=== PATIENT | male | born 2000 | race Hispanic/Latino ===

== ENCOUNTER → 2024-07-16 | Outpatient (CLI) | payer OTHER, SELFPAY ==
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
== END | disposition home or self-care (01) ==
PROVIDERS: Referring Provider Physician Assistant; Visit Provider Physician Assistant
DX: M79.604 Pain in right leg (principal)
CPT/HCPCS: 73590

== ENCOUNTER → 2024-08-12 | Outpatient (CLI) | payer OTHER, SELFPAY ==
--- NOTE | 2024-08-12 14:00 | VDLE_ITS ---
Reason For Study Reason For Study: Swelling RIGHT LEFT CFV is compressible, spontaneous, phasic, competent CFV is compressible, spontaneous, phasic, competent, and demonstrates normal augmentation. and demonstrates normal augmentation. FV is compressible, spontaneous, phasic, competent and demonstrates normal augmentation. POP V is compressible, spontaneous, phasic, competent and demonstrates normal augmentation. T/P Trunk is compressible. PTV is compressible. RT PerV is compressible. SFJ is INCOMPETENT and measures 0.60 cm. GSV proximal thigh measures 0.18x0.20 cm. GSV at knee measures 0.15x0.21 cm. GSV below knee is INCOMPETENT for greater than 0.5 seconds. SSV mid calf is competent and measures 0.35x0.39 cm. Procedure This is a venous duplex using B-mode, color flow and spectral Doppler. Exam performed in department. Patient was scanned in reverse Trendelenburg position during reflux assessment. VL/Venous Duplex US, Unilateral Interpretation Summary Deep veins of the right lower extremity are patent and compressible segmentally . There is no evidence of right lower extremity deep vein thrombosis. The right great saphenous vein appears patent a nd compressible segmentally. Positive for reflux in the right saphenofemoral junction, great saphenous vein below the knee. Ordering Physician: Malissa Jeff Performed By: Raymond Syed RVT and Student
== END | disposition home or self-care (01) ==
LOC: CVS 13:58
PROVIDERS: Visit Provider Physician Assistant
DX: M79.604 Pain in right leg (principal)
CPT/HCPCS: 93971

== ENCOUNTER → 2024-08-20 | Outpatient (CLI) | payer OTHER, SELFPAY ==
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
== END | disposition home or self-care (01) ==
LOC: MRI 12:45
PROVIDERS: Referring Provider Physician Assistant; Visit Provider Physician Assistant
DX: M79.604 Pain in right leg (principal)
CPT/HCPCS: 73720; A9575

== ENCOUNTER 2024-09-18 14:00 | Outpatient (RCR) | payer OTHER, SELFPAY ==
[2024-08-28 15:32] VITALS: BP 123/66; PULSE 78; RESP 16; TEMP 36.3; BMI 29.1
--- NOTE | 2024-08-28 17:26 | PN.PCM_ITS ---
History of Present Illness Date of Service: 08/28/24 Objective Data Objective Data Vital Signs: Vital Signs Temp Pulse Resp BP O2 Del Method 97.4 F L 78 16 123/66 H Room Air 08/28/24 15:32 08/28/24 15:32 08/28/24 15:32 08/28/24 15:32 08/28/24 15:32 Oxygen Delivery Method Room Air Weight: 175 lb Body Mass Index (BMI) 29.1 Debridement Note Debridement Note Post-Debridement Measurements and Additional Note: Post-Debridement Measurements/Treatment - Nurse 1 - General Ulcer Assessment Start: 08/28/24 15:27 Freq: Status: Active Protocol: PAO.[email or web address] Activity Type Activity Date Activity User E-sign Co-sign Detail Recorded Client Recorded Date Recorded By Document 08/28/24 15:32 DS [id number] 08/28/24 15:39 DS 08/28/24 15:32 WC - Today's Visit Information Type of service Initial Visit Arrival Mode Ambulatory Patient Identification Verified (Name & Yes ) Patient Requires Transmission-Based No Precautions Safety Precautions Fall Prevention Height and Weight Height 5 ft 5 in Weight 175 lb Weight in Pounds 175.0 lbs Weight Measurement Method Estimated by Patient Body Mass Index (BMI) 29.1 BMI Classification Overweight Vital Signs Temperature (97.8 F-99.1 F) 97.4 F L Temperature Source Temporal Pulse Rate (60-100) 78 Pulse Location Monitor Respiratory Rate (12-18) 16 Respiratory rate source Observation Oxygen Delivery Method Room Air Blood Pressure (90/60-120/80) 123/66 H Blood Pressure Mean (mm Hg) 85 Source Monitor Position Semi-Fowlers Blood Pressure Location Right Arm History Since Last Visit- (Skip if this is Patient's initial visit) Left Footwear Regular Shoe Right Footwear Regular Shoe Pain Scale: 0-10 Numeric Is Patient Pain Free? No RLE -Description Sharp -Intensity 6 -Duration (hours) Chronic -Alleviating Factors/Interventions Will continue to monitor, Emotional Support Lower Extremity Assessment/ Foot Assessment/ Toe Nail Assessment Right -Polpliteal Pulses Palpable Yes -Popliteal Doppler Monophasic -Posterior Tibial Palpable Yes -Posterior Tibial Doppler Monophasic -Dorsalis Pedis Palpable Yes -Dorsalis Pedis Doppler Monophasic -Extremity Color Normal -Hair Growth on Legs Yes -Hair Growth on Toes Yes -Temperature of Extremity Warm -Capillary Refill Less than 3 Seconds -Thick No -Discolored No -Deformed No -Improper Length & Hygeine No Communication Assessment Primary Language Welsh Preferred language Fusion Analyst Required Yes Name/Type of Jackerman friend Able to Read Yes Able to Write Yes Right Hearing Abillity Normal Left Hearing Abillity Normal Visual Assistive Devices Glasses Teaching Assessment Preferences Verbal,Written, Demonstration Barriers to Learning Non [place] Speaking Readiness To Learn Good Willingness to Engage in Self Management Med Activies Readiness to Engage in Self Management Med Activities Anxiety Level Anxious Cooperation Cooperative Perception Coherent Interest in Health Problem Asks Questions Education Importance Acknowledges Need Does Patient Smoke tobacco or other No substances Is Patient Diabetic No Functional Assessment Recent Decline in Ability to Perform Denies Any Declines Culture/Confucianism/Finance And Administration Manager Cultural/Confucianism Needs that may affect No Treatment Plan Teaching: Wound Center *Welcome to the Wound Center -Person Taught Patient,Family -Teaching Method Discussion -Response to teaching Verbalize Understanding PAO - Nurse 1 - General Ulcer Measurement Start: 08/28/24 15:27 Freq: Status: Active Protocol: Activity Type Activity Date Activity User E-sign Co-sign Detail Recorded Client Recorded Date Recorded By Document 08/28/24 15:41 DS [id number] 08/28/24 15:43 DS 08/28/24 15:41 Wound Center Nurse 1 #1 RLE Post cluster -Current Size (cm) - Length 12.7 -Current Size (cm) - Width 11.5 -Current Size (cm) - Depth 0.3 -Total Square Cm 146.05 -Date of Last Picture (Recall this 08/28/24 field) -Photo Taken Yes -Tunneling No -Undermining/Tunneling No -Circular Undermining No -Wound Margin Distinct, Outline Attached -Necrosis Amt Medium (34-66%) -Necrotic Tissue Type Eschar -Texture (Vandana-wound Skin Appearance) Assessed -Moisture (Vandana-wound Skin Appearance) Assessed -Color (Vandana-wound Skin Appearance) Assessed -Temperature (Vandana-wound Skin No Abnormality Appearance) (Pt Warm) -Tenderness on Palpation (Vandana-wound No Skin Appearance) -Ulcer Cleansing Soap and Water -Foul Odor after Cleansing No -Anesthetic Used 5% Lidocaine Gel Right Calf (cm) 34.6 Right Ankle (cm) 24.0 Left Calf (cm) 34.1 Left Ankle (cm) 21.2 PAO - Nurse 2 - General Ulcer CM Notes Start: 08/28/24 15:27 Freq: Status: Active Protocol: Activity Type Activity Date Activity User E-sign Co-sign Detail Recorded Client Recorded Date Recorded By Document 08/28/24 16:03 [id number] 08/28/24 16:18 08/28/24 16:03 Wound Center Nurse 2 #1 RLE Post cluster -Time 16:03 -Correct Patient Yes -Correct Side, Site, Position Yes -Correct Procedure Yes -Procedure Performed Yes -Type of Procedure Debridement -Clinical Debridement Epidermis / Dermis -Tissue Removed Epidermis, Dermis -Post Debridement (cm) - Length 15.0 -Post Debridement (cm) - Width 11.0 -Post Debridement (cm) - Depth 0.1 -Total Square (Post) (cm) 165.00 -Area of Debridement (cm) - Length 15.0 -Area of Debridement (cm) - Width 11.0 -Total Square (Area) (cm) 165.00 -Tunneling No -Undermining/Tunneling No -Circular Undermining No -Wound/Ulcer Outcome Not Healed -Ulcer Cleansing Not Cleansed -Foul Odor after Cleansing No -Bioengineered Tissue No -Bleeding Controlled with NA -Treatment Response Procedure Tolerated Well -Debridement - Open, 1st 20sq cm Yes -Debridement, Open, ea addt'l 20sq cm 8 or part thereof Pain Scale: 0-10 Numeric Is Patient Pain Free? Yes - Nurse 3 - General Ulcer D/C NN Start: 08/28/24 15:27 Freq: Status: Active Protocol: Activity Type Activity Date Activity User E-sign Co-sign Detail Recorded Client Recorded Date Recorded By Document 08/28/24 16:26 [id number] 08/28/24 16:33 DL 08/28/24 16:26 Wound Care Center Nurse 3 #1 RLE Post cluster -Ulcer Cleansing Rinsed/ Irrigated with Saline -Foul Odor after Cleansing No -Primary Dressing Applied Aquacel AG 4x4 -Other Covering Unna -Aquacel AG 4x4 1 RLE -Multi-Layered Wrap Application Unna Boot - Right -Unna- Right (Qty applied) 1 Treatment Response Procedure Tolerated Well Pain Scale: 0-10 Numeric Is Patient Pain Free? Yes - Visit Discharge Discharge Condition Stable Ambulatory Status Ambulatory Transportation Private Auto
--- NOTE | 2024-08-29 10:08 | WC ---
PHOTO 08/28/24 Vasiliy WIGGINS
--- NOTE | 2024-08-29 10:10 | WC ---
PHOTO 08/28/24 Vasiliy WIGGINS
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
[2024-09-04 13:40] VITALS: BP 132/78; PULSE 104; RESP 18; TEMP 36.6; BMI 29.1
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
[2024-09-11 13:42] VITALS: BP 102/64; PULSE 75; RESP 16; TEMP 36.2; BMI 29.1
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
[2024-09-18 13:57] VITALS: BP 123/78; PULSE 84; RESP 18; TEMP 36.1; BMI 29.1
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
--- NOTE | 2024-09-19 09:37 | WC ---
PHOTO 09/18/24 RIGHT LATERAL LE
== END 2024-09-22 23:59 | disposition home or self-care (01) ==
LOC: WC 14:00
PROVIDERS: Referring Provider Physician Assistant; Visit Provider Physician Assistant
DX: L97.919 Non-pressure chronic ulcer of unspecified part of right lower leg with unspecified severity (principal); Z87.891 Personal history of nicotine dependence
CPT/HCPCS: 29580; 87070; 87075; 87205; 97597; 97598; 99213; G0463

== ENCOUNTER 2024-10-16 14:00 | Outpatient (RCR) | payer OTHER, SELFPAY ==
[2024-09-23 00:58] VITALS: BP 123/78; PULSE 84; RESP 18; TEMP 36.1; BMI 29.1
[2024-09-25 14:12] VITALS: BP 123/67; PULSE 84; RESP 18; BMI 29.1
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
--- NOTE | 2024-09-26 10:56 | WC ---
PHOTO 09/25/24 RLE POST CLUSTER
--- NOTE | 2024-09-26 10:57 | WC ---
PHOTO 09/25/24 RLE POST CLUSTER
[2024-10-02 13:17] VITALS: BP 113/73; PULSE 70; RESP 18; TEMP 36.5; BMI 29.1
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
[2024-10-09 13:41] VITALS: BP 113/71; PULSE 80; RESP 16; TEMP 36.3; BMI 29.1
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
[2024-10-16 14:11] VITALS: BP 116/60; PULSE 78; RESP 14; TEMP 36.8; BMI 29.1
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
== END 2024-10-22 23:59 | disposition home or self-care (01) ==
LOC: WC 14:00
PROVIDERS: Referring Provider Physician Assistant; Visit Provider Physician Assistant
DX: L97.919 Non-pressure chronic ulcer of unspecified part of right lower leg with unspecified severity (principal); Z87.891 Personal history of nicotine dependence
CPT/HCPCS: 29581; 99213; G0463

== ENCOUNTER 2024-10-30 08:21 | Outpatient (RCR) | payer OTHER, SELFPAY ==
[2024-10-23 00:20] VITALS: BP 116/60; PULSE 78; RESP 14; TEMP 36.8; BMI 29.1
[2024-10-30 15:32] VITALS: BP 132/77; PULSE 90; RESP 16; TEMP 36.2; BMI 29.1
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
== END 2024-11-20 14:40 | disposition home or self-care (01) ==
LOC: WC 08:21
PROVIDERS: Referring Provider Physician Assistant; Visit Provider Physician Assistant
DX: L97.919 Non-pressure chronic ulcer of unspecified part of right lower leg with unspecified severity (principal)
CPT/HCPCS: 99213; G0463